=== PATIENT | male | born 1950 | race Caucasian/White ===

== ENCOUNTER 2017-01-27 04:44 | Inpatient (IN) ==
[2017-01-20 16:16] LABS: Basophils # (Auto) 0 K/mcL (0.0-0.3); Basophils % (Auto) 0.6 % (0.0-2.0); Eosinophils # (Auto) 0.3 K/mcL (0.0-0.7); Eosinophils % (Auto) 4.7 % (0.0-7.0); Granulocytes % (Auto) 51.2 % (38.0-78.0); Lymphocytes # (Auto) 2.4 K/mcL (1.5-4.8); Lymphocytes % (Auto) 33.4 % (15.5-49.0); Mean Cell Volume 93.3 fL (80.0-100.0); Mean Corpuscular HGB Conc 33.2 g/dL (31.0-36.0); Monocytes # (Auto) 0.7 K/mcL (0.1-0.9); Monocytes % (Auto) 10.1 % (1.0-9.0); Platelet Count 284 K/mcL (140-440); RBC 4.76 M/mcL (4.50-5.90); Red Cell Distribution Width 13.4 % (11.5-14.5)
[2017-01-20 16:41] LABS: Blood Urea Nitrogen 16 mg/dl (8-23)
[2017-01-20 17:06] LABS: Appearance,Urine CLEAR; Bilirubin,Urine NEG (NEG); Color,Urine YELLOW; Glucose,Urine (UA) NEGATIVE (NEG); Leukocyte Esterase,Urine NEG /uL (NEG); Nitrate,Urine NEG (NEG); Protein,Urine NEG (NEG); Specific Gravity,Urine 1.018 (1.000-1.035); Urine Blood NEG mg/dL (<0.03); Urobilinogen,Urine NEG (NEG)
[2017-01-27] MEDS ORDERED: ACETAMINOPHEN 500 MG TABLET PO SCH (05:00)
[2017-01-27] MEDS ORDERED: PREGABALIN 150 MG CAPSULE PO SCH (05:00)
[2017-01-27] MEDS ORDERED: ceFAZolin 1 GM VIAL IV SCH (05:00)
[2017-01-27] MEDS ORDERED: CELECOXIB 200 MG CAPSULE PO SCH (05:00)
[2017-01-27] MEDS ORDERED: oxyCODONE 10 MG TAB.ER.12H PO SCH (05:00)
[2017-01-27] MEDS ORDERED: KETOROLAC 30 MG, ROPIVACAINE HCL/PF 49.5 ML, EPINEPHrine 0.5 MG, 0.9 % SODIUM CHLORIDE ... IJ SCH (06:30)
[2017-01-27] MEDS ORDERED: TRANEXAMIC ACID 1,000 MG/10 ML VIAL IV ONE ×2 (07:50→10:12)
[2017-01-27] MEDS ORDERED: ONDANSETRON 4 MG/2 ML VIAL IV ONE (07:50)
[2017-01-27] MEDS ORDERED: DEXAMETHASONE 10 MG/ML VIAL IV ONE (07:50)
[2017-01-27] MEDS ORDERED: MIDAZOLAM 5 MG/5 ML VIAL IV ONE (07:50)
[2017-01-27] MEDS ORDERED: EPINEPHrine 1 MG/ML ML IV ONE (07:50)
[2017-01-27] MEDS ORDERED: LIDOCAINE HCL/PF 100 MG/5 ML SYRINGE IV ONE (07:50)
[2017-01-27] MEDS ORDERED: PROPOFOL 200 MG/20 ML VIAL IV ONE (07:50)
[2017-01-27] MEDS ORDERED: ePHEDrine 50 MG/ML AMPUL IV ONE (07:50)
[2017-01-27] MEDS ORDERED: GLYCOPYRROLATE 0.2 MG/ML VIAL IV ONE (07:50)
[2017-01-27] MEDS ORDERED: ROPIVACAINE HCL/PF 30 ML VIAL IJ ONE (07:50)
[2017-01-27] MEDS ORDERED: GENTAMICIN SULFATE 800 MG/20 ML VIAL IR ONE (08:13)
[2017-01-27] MEDS ORDERED: LACTATED RINGERS 250 ML IV PRN ×2 (08:31→10:32)
[2017-01-27] MEDS ORDERED: PROMETHAZINE 25 MG/ML VIAL IV PRN ×2 (08:31→10:32)
[2017-01-27] MEDS ORDERED: ePHEDrine 50 MG/ML AMPUL IV PRN ×2 (08:31→10:32)
[2017-01-27] MEDS ORDERED: METOCLOPRAMIDE 10 MG/2 ML VIAL IV PRN ×2 (08:31→10:32)
[2017-01-27] MEDS ORDERED: ONDANSETRON 4 MG/2 ML VIAL IV PRN ×3 (08:31→10:32)
[2017-01-27] MEDS ORDERED: fentaNYL 100 MCG/2 ML VIAL IV PRN ×2 (08:31→10:32)
[2017-01-27] MEDS ORDERED: FLUMAZENIL 0.1 MG/ML ML IV PRN ×2 (08:31→10:32)
[2017-01-27] MEDS ORDERED: MEPERIDINE 25 MG/ML SYRINGE IV PRN ×2 (08:31→10:32)
[2017-01-27] MEDS ORDERED: BENZOCAINE/MENTHOL 1 LOZENGE PO PRN ×3 (08:31→10:32)
[2017-01-27] MEDS ORDERED: IPRATROPIUM/ALBUTEROL 3 ML AMPUL.NEB NEB PRN (08:31)
[2017-01-27] MEDS ORDERED: NALOXONE HCL 0.4 MG/ML VIAL IV PRN ×2 (08:31→10:32)
[2017-01-27] MEDS ORDERED: METHOCARBAMOL 1,000 MG/10 ML VIAL IV PRN ×2 (08:31→10:32)
[2017-01-27] MEDS ORDERED: HYDROmorphone 2 MG/ML SYRINGE IV PRN ×3 (08:31→10:32)
[2017-01-27] MEDS ORDERED: diphenhydrAMINE 50 MG/ML VIAL IV PRN ×2 (08:31→10:32)
[2017-01-27] MEDS ORDERED: LACTATED RINGERS 1,000 ML IV SCH ×2 (08:45→10:45)
[2017-01-27] MEDS ORDERED: MAGNESIUM HYDROXIDE 30 ML ORAL.SUSP PO PRN (10:12)
[2017-01-27] MEDS ORDERED: HYDROcodone/APAP 10/325MG TABLET PO PRN (10:12)
[2017-01-27] MEDS ORDERED: ACETAMINOPHEN 325 MG TABLET PO PRN (10:12)
[2017-01-27] MEDS ORDERED: FLEETS ADULT ENEMA PR PRN (10:12)
[2017-01-27] MEDS ORDERED: TEMAZEPAM 15 MG CAPSULE PO PRN (10:12)
[2017-01-27] MEDS ORDERED: BISACODYL 10 MG SUPP.RECT PR PRN (10:12)
[2017-01-27] MEDS ORDERED: POLYETHYLENE GLYCOL 3350 17 GM PACKET PO PRN (10:12)
--- NOTE | 2017-01-27 10:12 | Brief Operative Note ---
Date of procedure: 01/27/17 Pre-op diagnosis: Right knee djd Post-op diagnosis: same Procedure: right tka Grafts/Implants: Yes Anesthesia: GETA Complications Description: 01/27/17 10:11 none Surgeon: Dannie Langford Filter Press Operator: Richi Lou Estimated blood loss (cc): 50 Tourniquet Time (Minutes): 90 Specimens Removed/Pathology: none sent Condition: stable Disposition: PACU
[2017-01-27] MEDS ORDERED: PROMETHAZINE 25 MG/ML VIAL IM ONE (10:32)
[2017-01-27] MEDS ORDERED: MEPERIDINE 50 MG/ML SYRINGE IM ONE (10:32)
--- NOTE | 2017-01-27 10:57 | XRay Report ---
CLINICAL INFORMATION: Post knee replacement surgery TECHNIQUE: AP and lateral right knee COMPARISON: Preoperative right knee dated 06/05/2015 FINDINGS: Status post right total knee arthroplasty. Alignment is anatomic. There is postsurgical soft tissue and intra-articular gas IMPRESSION: Status post right total knee arthroplasty Interpreted and Authenticated by: Lino Rodriguez 01/27/17
--- NOTE | 2017-01-27 12:04 | Operative Note ---
DATE OF OPERATION: 01/27/2017 PREOPERATIVE DIAGNOSIS: Right knee degenerative arthritis, severe. POSTOPERATIVE DIAGNOSIS: Right knee degenerative arthritis, severe. PROCEDURE: Right total knee arthroplasty using the ADELE robot. SURGEON: Dannie Langford MD. STAPLE SIDE LASTER: Richi Lou PA-C. ANESTHESIA: General LMA anesthesia. COMPLICATIONS: None. TOTAL TOURNIQUET TIME: Approximately 90 minutes. IMPLANTS PLACED: A size 8 femur, size 8 tibial baseplate with an 11 mm poly insert. COMPLICATIONS: None. DESCRIPTION OF PROCEDURE: The patient was brought to the operating room and put to sleep with general LMA anesthesia. Once asleep, the patient had the right leg sterilely prepped and draped in the usual sterile fashion. Once done, we exsanguinated the leg and inflated the tourniquet to 250 pounds of pressure. We made a midline incision and mid vastus approach performed after confirming the operative site. Once done, we then made a mid vastus approach through the joint and inspected the joint which showed severe arthritis in all three compartments. We then placed the pins for the ADELE total knee with two pins above and two pins below the knee and placed the arrays. Intra-articular pins were placed. We registered the center of hip rotation, registered the medial and lateral malleoli, and then prepared the knee for surgery. We removed some of the anterior fat pad, the meniscus and prepared the patella making our measurement and cutting this to the appropriate thickness. We then placed a protective plate on the patella, inspected the joint. The robot was brought in after we registered the 30 points on the femur, 30 points on the tibia. Once all points were registered, we then brought in the robot, registered the robot and the intra-articular pin. Once done, we then made our distal femoral cut after balancing the knee. The knee had been balanced to 19 degrees flexion, 19 degrees extension. Both were balanced perfectly by externally rotating the component with 3 degrees of varus of the tibial baseplate. Once perfectly balanced, we then made our cuts of the femur, both distal femur, anterior femur and chamfer cuts. The tibia was then cut using the ADELE robot as well. Once the bony fragments were removed and osteophytes were removed posteriorly, we then trialed the components; size 8 tibia, size 8 femur, 11 mm poly. We irrigated thoroughly. We then cemented into place after punching into place and setting the rotation of the tibial baseplate. The size 8 femur and size 8 tibial baseplate were cemented into place. Excess cement was removed. An 11 mm poly inserted. The patella had a 40 mm patellar button eccentric placed. We irrigated thoroughly, watched the cement dry. Once this was done, we removed excess cement. We deflated the tourniquet at about 90 minutes. We closed the mid vastus approach with #2 FiberWire and a double-armed Maxon stitch. We closed the skin with 2-0 Vicryl and adhesive closure. The wounds were closed with 2-0 Vicryl and nylon. Sterile bandage was applied. The patient left the operating room in good condition. The patient measured 10 degrees of flexion contracture and 11 degrees. We brought the patient back to about a 3 degree flexion contracture and about 3 degrees of varus versus 10 degrees of varus. We did strip the medial portion of the collateral ligament to help with balancing. There was no complication. The patient tolerated this well. RBH:en Job ID: [id number] Doc ID: [id number] Dannie Langford MD
[2017-01-27] MEDS: KETOROLAC 15 MG/ML VIAL IV SCH ×3 (13:00→22:56)
[2017-01-27] MEDS: 0.9 % SODIUM CHLORIDE 10 ML SYRINGE IV SCH ×2 (15:48→22:01)
[2017-01-27] MEDS: 0.45 % SODIUM CHLORIDE 1,000 ML IV SCH ×3 (16:24→19:22)
[2017-01-27] MEDS: ceFAZolin 1 GM VIAL IV SCH ×2 (16:24→22:01)
[2017-01-27] MEDS ORDERED: SENNOSIDES 1 TABLET PO SCH (21:00)
[2017-01-27] MEDS ORDERED: SIMVASTATIN 20 MG TABLET PO SCH (21:00)
[2017-01-27] MEDS: ASPIRIN 325 MG ENTERIC COATED TABLET PO SCH (22:00)
[2017-01-27] MEDS: oxyCODONE 10 MG TAB.ER.12H PO SCH (22:00)
[2017-01-27] MEDS: DOCUSATE SODIUM 100 MG CAPSULE PO SCH (22:01)
[2017-01-28] MEDS: 0.45 % SODIUM CHLORIDE 1,000 ML IV SCH (01:18)
[2017-01-28] MEDS: KETOROLAC 15 MG/ML VIAL IV SCH ×2 (05:34→12:35)
[2017-01-28] MEDS: 0.9 % SODIUM CHLORIDE 10 ML SYRINGE IV SCH (05:56)
[2017-01-28] MEDS ORDERED: LEVOTHYROXINE SODIUM 112 MCG TABLET PO SCH (07:30)
--- NOTE | 2017-01-28 07:40 | Orthopedic Progress Note ---
Subjective Patient information: Note initiated : 01/28/17 at 7:39 am Service Date, if different from initiated Date: [] Patient: Sabino Archer 66 y/o M admitted on 01/27/17 for Right Robotic Total Knee Arthroplasty. Chief Complaint: [Pt is stable this morning on post operative day 1 without any significant concerns or complaints. Patients vital signs have remained stable. Patients dressing is dry and exhibits a grossly intact neurovascular and neuromotor exam. Patients 10 point ROS is otherwise negative. ] Objective Vital signs: Vital Signs Temp Pulse Resp BP Pulse Ox 01/28/17 04:00 97.9 F 92 H 16 132/74 92 01/28/17 00:00 98.0 F 99 H 16 145/87 93 01/27/17 22:00 93 01/27/17 20:00 98.0 F 101 H 16 132/75 93 01/27/17 18:00 95 01/27/17 14:43 84 118/77 98 01/27/17 14:12 95 01/27/17 13:40 92 H 143/83 95 01/27/17 13:27 86 130/78 94 01/27/17 13:10 76 125/74 89 L 01/27/17 12:55 83 127/81 97 01/27/17 12:40 83 132/77 97 01/27/17 12:09 84 125/77 98 01/27/17 12:00 97 01/27/17 11:55 80 126/76 97 01/27/17 11:40 76 125/73 89 L 01/27/17 11:23 76 16 117/71 96 01/27/17 11:00 78 15 98/52 96 01/27/17 10:45 84 18 74/41 96 01/27/17 10:32 99.0 F 62 14 88/55 95 Intake and Output 01/27/17 01/28/17 01/28/17 21:59 05:59 13:59 Intake Total 1500 / 1500 Output Total 575 / 575 2550 / 2550 Balance -575 / -575 -1050 / -1050 Intake: IV 1000 / 1000 Sodium Chloride 0.45% 1, 1000 / 1000 000 ml @ 125 mls/hr IV . Q8H [facility] Rx#:[id number] Oral 500 / 500 Output: Void Amount 575 / 575 2550 / 2550 Other: Weight 260 lb Intake & Output: Intake & Output 01/27/17 01/28/17 01/28/17 21:59 05:59 13:59 Intake Total 1500 / 1500 Output Total 575 / 575 2550 / 2550 Balance -575 / -575 -1050 / -1050 Weight 260 lb Intake: IV 1000 / 1000 Sodium Chloride 0.45% 1, 1000 / 1000 000 ml @ 125 mls/hr IV . Q8H [facility] Rx#:[id number] Oral 500 / 500 Output: Void Amount 575 / 575 2550 / 2550 Incision: Yes healing Incision clean and dry: Yes Dressing: Yes clean, Yes dry Weight bearing status: full Neurological exam IM: Yes motor sensory intact, Yes neurovascular intact Extremities exam IM: Yes Foot pink and warm, Yes neurovascular intact - Labs CBC & BMP: 01/28/17 05:30 01/20/17 14:55 Labs: 01/28/17 01/20/17 05:30 14:55 Hgb 14.8 Hct 35.9 L 44.4 Assessment and Plan (1) Hx of total knee arthroplasty Patient has been educated regarding wound care and dressings, follow up recommendations, and medication use. We will f/u with the patient within 2-3 weeks for wound check. Status: Acute
--- NOTE | 2017-01-28 07:45 | Discharge Summary ---
Ortho Discharge - TKA - Patient Instructions Diet: Regular Diet Activity: activity as tolerated, weight bearing as tolerated Total Knee Protocol: For Total Knee: Start ROM DIONNA with stationary bike or rocking chair. Work on gaining full extension of knee. Posterior dislocation precautions provided. Hip abductor strengthening and gait training instructions provided. Apply Cryocuff as instructed. Dressing Care: May shower in 2 days, Aquacel Ag - leave on for 5 days Patient Education: Total Knee Replacement (DC) Additional Instructions: [employer] [phone] APPOINTMENT: Do the exercises at home that Physical therapy gave you. Wear comfortable clothes . Consider taking pain meds 45 min before physical therapy appointment. Take photo ID and insurance cards with you to physical therapy and to pickling operator your walker at [facility] You have Dermabond (a dressing with a mesh-like appearance), leave open to air. You may start showering on post op day #2. The Dermabond dressing can get wet, do not scrub dressing. Pat dry. Use over the counter stool softeners or laxatives to avoid constipation associated with narcotic use. Use your Cryocuff or ice packs as directed, on for 20 minutes at a time throughout the day. This and elevation will help with pain and swelling. Call your physician for fever greater than 100.5 or pain not controlled by medication. Your prescriptions are with your discharge information. Some medications were electronically transmitted to your pharmacy of choice. - Problem Maintenance (1) Hx of total knee arthroplasty Status: Acute - Follow Up Plan Follow Up Appointments: Dannie Langford MD [Physician] - 02/11/17 1:00 pm Disposition: Home, Self-Care Prognosis: Good Rehab Potential: Good I certify that the patient requires SNF services: No Overall status at discharge: patient is progressing back to baseline - Orders For Discharge Prescriptions: Aspirin [Ecotrin] 325 mg PO BID #60 tab.ec Docusate Sodium [Colace] 100 mg PO BID #60 capsule HYDROcodone/APAP 10/325MG [[place] 10/325Mg] 1 - 2 tab PO Q4HP PRN #75 tablet PRN Reason: Pain
[2017-01-28] MEDS: DOCUSATE SODIUM 100 MG CAPSULE PO SCH (08:57)
[2017-01-28] MEDS: ASPIRIN 325 MG ENTERIC COATED TABLET PO SCH (08:57)
[2017-01-28] MEDS: oxyCODONE 10 MG TAB.ER.12H PO SCH (08:57)
[2017-01-28] MEDS ORDERED: SERTRALINE 50 MG TABLET PO SCH (09:00)
[2017-01-28] MEDS ORDERED: LOSARTAN 50 MG TABLET PO SCH (09:00)
[2017-01-28] MEDS ORDERED: MULTIVIT,THER IRON,CA,FA & MIN 1 TABLET PO SCH (09:00)
[2017-01-28] MEDS ORDERED: amLODIPine 5 MG TABLET PO SCH (09:00)
[2017-01-28] MEDS ORDERED: FLU VACC QS2016-17 36MOS UP/PF 60 MCG/0.5 ML SYRINGE IM ONE (10:00)
== END 2017-01-28 17:55 | disposition home or self-care (01) | DRG 470 ==
LOC: MEDSUR 04:44
PROVIDERS: ADMIT Orthopaedic Surgery; ATTEND Orthopaedic Surgery